=== PATIENT | female | born 1980 | race Caucasian/White ===

== ENCOUNTER 2022-08-22 00:21 | Emergency (ER) | payer SELFPAY ==
[~2022-08-22] VITALS: Ht 157.5 cm; Wt 68.2 kg
[2022-08-22 01:44] LABS: BASO % 0.5 % (0.0-2.0); EOS # 0.1 K/mm3 (0.0-0.7); EOS % 0.9 % (0.0-4.0); GRAN % 62.6 % (42.2-75.2); HEMOGLOBIN 11.4 g/dl (12.5-16.0); LYMPH # 1.3 K/mm3 (1.2-3.4); LYMPH % 20.4 % (20.0-51.0); MEAN CELL VOLUME 80 fl (80.0-100.0); MEAN CORPUSCULAR HEMOGLOBIN 27 pg (27-31); MEAN CORPUSCULAR HGB CONC 34 g/dl (33.0-37.0); MEAN PLATELET VOLUME 10.2 fl (7.4-10.4); MONO % 15.1 % (1.7-9.3); PLATELET COUNT 356 K/mm3 (130-400); RED BLOOD COUNT 4.23 M/mm3 (4.10-5.30); REDCELL DISTRIBUTION WIDTH-CV 14.8 % (11.5-14.5)
[2022-08-22 01:45] LABS: HEMATOCRIT 33.8 % (37.0-47.0)
[2022-08-22 01:51] LABS: ALBUMIN 3.4 gm/dL (3.5-5.0); BILIRUBIN,TOTAL 0.7 mg/dL (0.2-1.2); C-REACTIVE PROTEIN 3.56 mg/dL (0.00-0.50); CALCIUM 9.2 mg/dL (8.4-10.2); CREATININE, serum 0.68 mg/dL (0.57-1.11); POTASSIUM 3.2 mmol/L (3.5-4.5); TOTAL PROTEIN 7.7 gm/dL (6.2-8.1)
[2022-08-22] MEDS ORDERED: ATARAX 25MG25 MG/TAB PO (02:57)
[2022-08-22] MEDS ORDERED: PREDNISONE20 MG PO (02:57)
[2022-08-22 03:32] VITALS: BP 105/73; PULSE 94; TEMP 97.3
== END 2022-08-22 03:35 | disposition home or self-care (01) ==
LOC: COL.ER 00:21
PROVIDERS: Emergency Medicine
DX: L50.9 Urticaria, unspecified (principal); F41.9 Anxiety disorder, unspecified
CPT/HCPCS: J1200; J2930; J7030

== ENCOUNTER 2022-11-13 20:21 | Emergency (ER) | payer SELFPAY ==
[~2022-11-13] VITALS: Ht 154.9 cm; Wt 63.6 kg
[~2022-11-13 20:21] MED LIST: ATARAX 25MG25 MG/TAB PO; PREDNISONE20 MG PO
[2022-11-13 20:29] VITALS: BP 144/78; TEMP 98.3
[2022-11-13] MEDS ORDERED: CEPHALEXIN500 M1 PO (20:49)
[2022-11-13 20:59] VITALS: PULSE 98
== END 2022-11-13 20:59 | disposition home or self-care (01) ==
LOC: COL.ER 20:21
DX: L08.9 Local infection of the skin and subcutaneous tissue, unspecified (principal); B96.89 Other specified bacterial agents as the cause of diseases classified elsewhere; F42.4 Excoriation (skin-picking) disorder; F17.290 Nicotine dependence, other tobacco product, uncomplicated; Z88.1 Allergy status to other antibiotic agents